=== PATIENT | female | born 1940 | race Caucasian/White ===

== ENCOUNTER → 2018-08-04 | Outpatient (REF) | payer MEDICARE ==
[~2018-08-04] MED LIST: ASPIRIN81 MG OR; FLONASE NASAL50 MCG; LISINOPRIL10 MG OR; LISINOPRIL20 M1 PO; SYNTHROID50 MCG PO; TENORMIN25 MG PO
== END | disposition home or self-care (01) ==
LOC: MAMMO 09:35
PROVIDERS: ATTEND Internal Medicine Geriatric Medicine
DX: Z12.31 Encounter for screening mammogram for malignant neoplasm of breast (principal)

== ENCOUNTER 2021-12-14 08:13 | Day surgery (SDC) | payer MEDICARE ==
[~2021-12-14] VITALS: Ht 170.2 cm; Wt 103.9 kg
[~2021-12-14 08:13] MED LIST changes: +CALCIUM500 M5 PO; +CRANBERRY250 M1 PO; +FISH OIL1000 MG PO; +MAGNESIUM64 MG PO; +MV-ONE PO
[2021-12-14 10:39] VITALS: BP 154/74
== END 2021-12-14 10:58 | disposition home or self-care (01) ==
LOC: ENDO 08:13 → ORM 09:20 → ENDO 09:30 → ORM 10:35 → ENDO 10:58 → ORM 11:15
PROVIDERS: ATTEND Surgery
PROC: 0DBL8ZX Excision of Transverse Colon, Via Natural or Artificial Opening Endoscopic, Diagnostic (ICD-10-PCS; principal; 2021-12-14)
DX: Z12.11 Encounter for screening for malignant neoplasm of colon (principal); K63.5 Polyp of colon; K57.30 Diverticulosis of large intestine without perforation or abscess without bleeding; K64.8 Other hemorrhoids; K64.4 Residual hemorrhoidal skin tags; I10 Essential (primary) hypertension; E03.9 Hypothyroidism, unspecified; Z86.010 Personal history of colon polyps; Z83.71 Family history of colonic polyps